=== PATIENT | male | born 1980 | race Two or more races ===

== ENCOUNTER 2023-05-20 16:41 | Inpatient (IN) | payer OTHER ==
[~2023-05-20] VITALS: Ht 185.4 cm; Wt 97.5 kg
[2023-05-20] MEDS ORDERED: ZESTRIL40 M1 (16:57)
[2023-05-20] MEDS ORDERED: ALOPURINOL (17:00)
[2023-05-20] MEDS ORDERED: AMLODIPINE-OLM1 EACH (17:00)
[2023-05-20] MEDS ORDERED: MESALAMINE800 MG ×2 (17:01→17:02)
[2023-05-20] MEDS ORDERED: PROTONIX40 M1 PO (17:01)
[2023-05-20] MEDS ORDERED: FENOFIBRATE150 MG (17:01)
[2023-05-20] MEDS ORDERED: PEPCID AC20 MG (17:01)
[2023-05-20] MEDS ORDERED: ACULAR5 ML (17:03)
[2023-05-20 18:02] LABS: HEMATOCRIT 38.7 % (39.0-48.0); HEMOGLOBIN 13.2 g/dL (13-16.00); MEAN CELL VOLUME 85.5 fL (80.0-100.00); MEAN CORPUSCULAR HEMOGLOBIN 29.2 pg (27.00-32.0); MEAN CORPUSCULAR HGB CONC 34.1 g/dl (32.0-36.0); PLATELET COUNT 214 K/uL (150-450); RED BLOOD COUNT 4.52 M/uL (4.00-6.00); RED CELL DISTRIBUTION WIDTH 14.9 % (11.5-14.5)
[2023-05-20 18:18] LABS: PH,URINE 5.5 (5.0-8.0); URINE APPEARANCE Clear; URINE BILIRRUBIN Small (NEGATIVE); URINE BLOOD Negative; URINE COLOR Dark Yellow; URINE GLUCOSE Negative (NEGATIVE); URINE LEUKOCYTE Trace; URINE NITRATE Negative; URINE PROTEIN Trace (NEGATIVE)
[2023-05-20 18:21] LABS: URINE BACTERIA 25.1 uL (0.0-1933); URINE EPITHELIAL CELLS 3.8 uL (0.0-38.8); URINE WBC 25.7 uL (0.0-23.2)
[2023-05-20 18:22] LABS: CALCIUM 8.7 mg/dL (8.5-10.1); CREATININE SERUM 1.28 mg/dL (0.70-1.30); GFR 61.63; POTASSIUM 3.74 mEq/L (3.5-5.1)
[2023-05-20 18:23] LABS: INR 1.08; PROTHROMBIN TIME 11.3 SECONDS (9.0-11.5)
[2023-05-20 18:25] LABS: URINE RBC 1.8 uL (0.0-20.8)
[2023-05-21 14:21] LABS: CALCIUM 8.5 mg/dL (8.5-10.1); CHOL HDL RATIO 3.8 (0-5.0); CREATININE SERUM 1.12 mg/dL (0.70-1.30); GFR 71.9; POTASSIUM 3.73 mEq/L (3.5-5.1)
[2023-05-23 09:15] LABS: ALBUMIN 2.8 gm/dL (3.4-5.0); BILIRUBIN TOTAL 0.38 mg/dL (0.3-1.2); CALCIUM 8.2 mg/dL (8.5-10.1); CREATININE SERUM 1.25 mg/dL (0.70-1.30); GFR 63.34; GLOBULINA 3.1 G/DL (2.4-3.5); POTASSIUM 4.18 mEq/L (3.5-5.1); TOTAL PROTEIN 5.9 gm/dL (6.4-8.2)
[2023-05-23 09:58] LABS: CREATININE SERUM 1.25 mg/dL (0.8-1.3)
[2023-05-23 09:59] LABS: CREATINE CLEARANCE 91.3 ML/MIN (97-137)
[2023-05-24 07:45] LABS: HEMATOCRIT 35.6 % (39.0-48.0); HEMOGLOBIN 12.1 g/dL (13-16.00); MEAN CELL VOLUME 84.8 fL (80.0-100.00); MEAN CORPUSCULAR HGB CONC 34.1 g/dl (32.0-36.0); PLATELET COUNT 223 K/uL (150-450); RED BLOOD COUNT 4.19 M/uL (4.00-6.00); RED CELL DISTRIBUTION WIDTH 14.3 % (11.5-14.5)
[2023-05-24 08:37] LABS: ALBUMIN 3.4 gm/dL (3.4-5.0); BILIRUBIN TOTAL 0.47 mg/dL (0.3-1.2); CALCIUM 8.7 mg/dL (8.5-10.1); CREATININE SERUM 1.15 mg/dL (0.70-1.30); GFR 69.74; GLOBULINA 3.6 G/DL (2.4-3.5); POTASSIUM 3.73 mEq/L (3.5-5.1)
== END 2023-05-24 22:19 | disposition home or self-care (01) | DRG 392 ==
LOC: ER 16:42 → SEC-K 05-21 00:17 → MEDJ 05-21 00:17
PROVIDERS: General Practice; Internal Medicine; ADMIT Specialist; ATTEND Specialist
PROC: BW21YZZ Computerized Tomography (CT Scan) of Abdomen and Pelvis using Other Contrast (ICD-10-PCS; principal; 2023-05-21)
DX: K57.32 Diverticulitis of large intestine without perforation or abscess without bleeding (principal); K63.89 Other specified diseases of intestine; M46.1 Sacroiliitis, not elsewhere classified; Z87.19 Personal history of other diseases of the digestive system

== ENCOUNTER 2024-06-29 10:11 | Outpatient (CLI) | payer OTHER ==
[~2024-06-29 10:11] MED LIST: ACULAR5 ML; ALOPURINOL; AMLODIPINE-OLM1 EACH; FENOFIBRATE150 MG; MESALAMINE800 MG; PEPCID AC20 MG; PROTONIX40 M1 PO; ZESTRIL40 M1
== END 2024-06-29 10:26 | disposition home or self-care (01) ==
LOC: TOM 10:11
PROVIDERS: ATTEND Specialist
DX: K50.10 Crohn's disease of large intestine without complications (principal); K57.32 Diverticulitis of large intestine without perforation or abscess without bleeding

== ENCOUNTER 2024-11-03 14:28 | Outpatient (CLI) | payer OTHER | END 2024-11-03 14:30 | disposition home or self-care (01) | LOC: RAD 14:28 | PROVIDERS: ATTEND Surgery | DX: K50.10 Crohn's disease of large intestine without complications (principal); K57.32 Diverticulitis of large intestine without perforation or abscess without bleeding ==

== ENCOUNTER 2024-11-07 12:30 | Inpatient (IN) | payer OTHER ==
[~2024-11-07] VITALS: Ht 30.5 cm; Wt 98.9 kg
[2024-11-14] MEDS ORDERED: ONDANSETRON HCL 2 MG/ML VIAL IV PRN (16:15)
[2024-11-14] MEDS ORDERED: RINGERS SOLUTION,LACTATED 1,000 ML IV SCH (16:15)
[2024-11-14] MEDS ORDERED: MORPHINE SULFATE 4 MG/ML CARTRIDGE IV PRN (16:15)
[2024-11-14] MEDS ORDERED: OxyCODONE HCL 5 MG TABLET (ROXICODONE) PO PRN (16:15)
[2024-11-14] MEDS ORDERED: HYOSCYAMINE SULFATE 0.125 MG TAB.SUBL SL SCH (17:00)
[2024-11-14] MEDS ORDERED: POLYETHYLENE GLYCOL 3350 17 GM BLIST.PACK PO SCH (17:00)
[2024-11-14] MEDS ORDERED: METOCLOPRAMIDE HCL 5 MG/ML VIAL IV SCH (17:00)
[2024-11-14] MEDS ORDERED: GABAPENTIN 300 MG CAPSULE PO SCH (17:00)
[2024-11-14] MEDS ORDERED: SIMETHICONE 125 MG CAPSULE PO SCH (17:00)
[2024-11-14] MEDS ORDERED: LIDOCAINE HCL 1%/EPINEPHRINE 20ML VIAL IJ ONE (17:30)
[2024-11-14] MEDS ORDERED: METRONIDAZOLE/SODIUM CHLORIDE 500 MG/100 ML PIGGYBACK IV ONE (17:30)
[2024-11-14] MEDS ORDERED: CEFTRIAXONE SODIUM 2,000 MG VIAL IV ONE (17:30)
[2024-11-14] MEDS ORDERED: BUPIVACAINE HCL 30 ML VIAL IJ ONE (17:30)
[2024-11-14] MEDS ORDERED: SUGAMMADEX SODIUM 200 MG/2 ML VIAL IV ONE (18:30)
[2024-11-14] MEDS ORDERED: MORPHINE SULFATE 4 MG/ML VIAL IV ONE ×2 (18:50→19:50)
[2024-11-14] MEDS ORDERED: ENALAPRILAT DIHYDRATE 1.25 MG/ML VIAL IV PRN (19:15)
[2024-11-14] MEDS ORDERED: DEXTROSE 50 % IN WATER 0.5 G/ML DISP.SYRIN IV PRN (19:15)
[2024-11-14] MEDS ORDERED: INSULIN LISPRO 1,000 UNIT/10 ML UNITS SUBCUTANEO PRN (19:15)
[2024-11-14] MEDS ORDERED: ACETAMINOPHEN 500 MG GEL..CAP PO SCH (20:00)
[2024-11-14 20:41] LABS: HEMATOCRIT 38.5 % (39.0-48.0); HEMOGLOBIN 12.8 g/dL (13-16.00); MEAN CELL VOLUME 83.1 fL (80.0-100.00); MEAN CORPUSCULAR HEMOGLOBIN 27.7 pg (27.00-32.0); MEAN CORPUSCULAR HGB CONC 33.3 g/dl (32.0-36.0); PLATELET COUNT 193 K/uL (150-450); RED BLOOD COUNT 4.63 M/uL (4.00-6.00); RED CELL DISTRIBUTION WIDTH 15.4 % (11.5-14.5)
[2024-11-14] MEDS ORDERED: CARVEDILOL 6.25 MG TABLET PO SCH (21:00)
[2024-11-14] MEDS ORDERED: FAMOTIDINE/PF 20 MG/2 ML VIAL IV PUSH SCH (21:00)
[2024-11-14] MEDS ORDERED: CELECOXIB 200 MG CAPSULE PO SCH (21:00)
[2024-11-14 21:52] VITALS: BP 117/78; O2SAT 96
[2024-11-15] VITALS: BP 125/76; O2SAT 98
[2024-11-15 06:17] LABS: HEMATOCRIT 29.5 % (39.0-48.0); MEAN CELL VOLUME 83.5 fL (80.0-100.00); MEAN CORPUSCULAR HGB CONC 33.6 g/dl (32.0-36.0); PLATELET COUNT 245 K/uL (150-450); RED BLOOD COUNT 3.54 M/uL (4.00-6.00); RED CELL DISTRIBUTION WIDTH 15.2 % (11.5-14.5)
[2024-11-15 06:46] LABS: HEMOGLOBIN 9.9 g/dL (13-16.00); MEAN CORPUSCULAR HEMOGLOBIN 27.9 pg (27.00-32.0)
[2024-11-15 06:47] LABS: ALBUMIN 2.9 gm/dL (3.4-5.0); CALCIUM 8.4 mg/dL (8.5-10.1); CREATININE SERUM 1.31 mg/dL (0.70-1.30); GFR 59.44; MAGNESIUM 1.8 mg/dL (1.8-2.4); PHOSPHOROUS 4.9 mg/dL (2.5-4.9); POTASSIUM 4.17 mEq/L (3.5-5.1)
[2024-11-15 08:25] VITALS: BP 125/79; O2SAT 97
[2024-11-15] MEDS ORDERED: LACTOBACILLUS ACIDOPHILUS 1 CAP CAP PO SCH (09:00)
[2024-11-15] MEDS ORDERED: PATIENTS OWN MEDICATION (MEDICAMENTO EN PISO) PO SCH (09:00)
[2024-11-15] MEDS ORDERED: ALLOPURINOL 300 MG TABLET PO SCH (09:00)
[2024-11-15] MEDS ORDERED: Cyanocobalamin/Mecobalamin 1 TAB.SL SL SCH (12:00)
[2024-11-15] MEDS ORDERED: SOD FERRIC GLUC COMPLX/SUCROSE 62.5 MG in 0.9 % SODIUM CHLORIDE 50 ML IV SCH (12:00)
[2024-11-15 12:54] LABS: HEMATOCRIT 24.7 % (39.0-48.0); MEAN CELL VOLUME 83.8 fL (80.0-100.00); MEAN CORPUSCULAR HEMOGLOBIN 28.1 pg (27.00-32.0); MEAN CORPUSCULAR HGB CONC 33.6 g/dl (32.0-36.0); PLATELET COUNT 224 K/uL (150-450); RED BLOOD COUNT 2.95 M/uL (4.00-6.00); RED CELL DISTRIBUTION WIDTH 15.5 % (11.5-14.5)
[2024-11-15 12:55] LABS: HEMOGLOBIN 8.3 g/dL (13-16.00)
[2024-11-15] MEDS ORDERED: AMINOCAPROIC ACID 250 MG/ML VIAL IV STA (13:05)
[2024-11-15] MEDS ORDERED: AMINOCAPROIC ACID 20 MG/ML ML IV SCH (14:30)
[2024-11-15 16:19] VITALS: BP 98/60; O2SAT 98
[2024-11-15] MEDS ORDERED: ROSUVASTATIN CALCIUM 10 MG TABLET PO SCH (17:00)
[2024-11-15] MEDS ORDERED: ENOXAPARIN SODIUM 40 MG/0.4 ML SYRINGE SUBCUTANEO SCH (17:00)
[2024-11-16 00:27] VITALS: BP 92/50; O2SAT 96
[2024-11-16 08:00] VITALS: BP 114/71; O2SAT 97
[2024-11-16] MEDS ORDERED: ENOXAPARIN SODIUM 40 MG/0.4 ML SYRINGE SUBCUTANEO SCH (09:00)
[2024-11-16 17:06] VITALS: BP 136/81; O2SAT 96
[2024-11-16 20:54] LABS: HEMATOCRIT 27.7 % (39.0-48.0); HEMOGLOBIN 9.4 g/dL (13-16.00); MEAN CELL VOLUME 84.6 fL (80.0-100.00); MEAN CORPUSCULAR HEMOGLOBIN 28.7 pg (27.00-32.0); PLATELET COUNT 136 K/uL (150-450); RED BLOOD COUNT 3.27 M/uL (4.00-6.00)
[2024-11-16 21:38] LABS: CALCIUM 8.1 mg/dL (8.5-10.1); CREATININE SERUM 1.28 mg/dL (0.70-1.30); GFR 61.05; POTASSIUM 3.72 mEq/L (3.5-5.1)
[2024-11-16 22:05] LABS: PHOSPHOROUS 1.7 mg/dL (2.5-4.9)
[2024-11-16] MEDS ORDERED: POTASSIUM PHOS,M-BASIC-D-BASIC 3 MM/ML VIAL IV ONE (22:45)
[2024-11-17 00:34] VITALS: BP 120/77; O2SAT 99
[2024-11-17 07:33] LABS: CALCIUM 8.6 mg/dL (8.5-10.1); CREATININE SERUM 1.04 mg/dL (0.70-1.30); GFR 77.58; MAGNESIUM 2.3 mg/dL (1.8-2.4); PHOSPHOROUS 2.7 mg/dL (2.5-4.9); POTASSIUM 4.27 mEq/L (3.5-5.1)
[2024-11-17 07:41] LABS: HEMATOCRIT 31.9 % (39.0-48.0); HEMOGLOBIN 10.7 g/dL (13-16.00); MEAN CELL VOLUME 84.1 fL (80.0-100.00); MEAN CORPUSCULAR HEMOGLOBIN 28.1 pg (27.00-32.0); MEAN CORPUSCULAR HGB CONC 33.4 g/dl (32.0-36.0); RED BLOOD COUNT 3.79 M/uL (4.00-6.00); RED CELL DISTRIBUTION WIDTH 15.5 % (11.5-14.5)
[2024-11-17 07:57] LABS: PLATELET COUNT 158 K/uL (150-450)
[2024-11-17 10:21] VITALS: BP 152/93; O2SAT 99
[2024-11-17] MEDS ORDERED: LISINOPRIL 40 MG TABLET PO NR (11:30)
[2024-11-17 16:36] VITALS: BP 146/78; O2SAT 97
[2024-11-17] MEDS ORDERED: FAMOtidine 20 MG TABLET PO SCH (21:00)
[2024-11-17] MEDS ORDERED: CARVEDILOL 6.25 MG TABLET PO SCH (21:00)
[2024-11-18] VITALS: BP 134/81; O2SAT 99
[2024-11-18] MEDS ORDERED: NEURONTIN300 MG PO (08:22)
[2024-11-18] MEDS ORDERED: TRAM1TAB98 PO (08:22)
[2024-11-18] MEDS ORDERED: INTESTINEX680 M1 PO (08:22)
[2024-11-18] MEDS ORDERED: AMOX-CLAV 875-1 EACH PO (08:23)
[2024-11-18] MEDS ORDERED: LISINOPRIL 40 MG TABLET PO SCH (09:00)
== END 2024-11-18 10:34 | disposition home or self-care (01) | DRG 330 ==
LOC: O/R 11-14 11:10 → SURH 11-14 12:30 → SURG 11-14 19:09
PROVIDERS: Internal Medicine Geriatric Medicine; ADMIT Surgery; ATTEND Surgery
PROC: 0DBP4ZZ Excision of Rectum, Percutaneous Endoscopic Approach (ICD-10-PCS; 2024-11-14)
PROC: 0DJD8ZZ Inspection of Lower Intestinal Tract, Via Natural or Artificial Opening Endoscopic (ICD-10-PCS; 2024-11-14)
PROC: 0DTN4ZZ Resection of Sigmoid Colon, Percutaneous Endoscopic Approach (ICD-10-PCS; principal; 2024-11-14 13:45)
PROC: 30233N1 Transfusion of Nonautologous Red Blood Cells into Peripheral Vein, Percutaneous Approach (ICD-10-PCS; 2024-11-15)
DX: K50.10 Crohn's disease of large intestine without complications (principal); K57.32 Diverticulitis of large intestine without perforation or abscess without bleeding; D50.0 Iron deficiency anemia secondary to blood loss (chronic)